=== PATIENT | female | born 1940 | race Caucasian/White ===

== ENCOUNTER 2017-09-04 17:47 | Emergency (ER) | payer MEDICARE, BC ==
[2017-09-04] MEDS ORDERED: ASPIRIN 81 MG CHEWABLE CTB PO ONE (18:11)
[2017-09-04] MEDS ORDERED: ASPIRIN 81 MG CHEWABLE CTB ONE (18:11)
[2017-09-04] MEDS ORDERED: NITROGLYCERIN 0.4 MG TAB SL ONE (18:11)
[2017-09-04] MEDS ORDERED: NITROGLYCERIN 0.4 MG TAB SL PRN (18:11)
[2017-09-04 18:23] LABS: BASOPHILS % (AUTO) 1 % (0-3); EOSINOPHILS % (AUTO) 1 % (0-9); HEMATOCRIT 40 % (35-47); MEAN CORPUSCULAR HGB CONC 34.2 gm/dl (32.0-36.0); MEAN CORPUSCULAR VOLUME 89 fL (81-99); MONOCYTES % (AUTO) 7.6 % (0-12); NEUTROPHILS % (AUTO) 46.8 % (37-80)
[2017-09-04 18:37] LABS: GLOM FILT RATE 71 mL/min (>60); SODIUM 139 mMol/L (136-145)
[2017-09-04 19:15] VITALS: BP 105/63; PULSE 68; RESP 16; O2SAT 96
[2017-09-04 20:03] VITALS: TEMP 98
== END 2017-09-04 19:00 | disposition home or self-care (01) | DRG 313 ==
LOC: ED 17:47
DX: R07.89 Other chest pain (principal)
CPT/HCPCS: 80048; 84484; 85025; 93005; 99284